=== PATIENT | female | born 1960 | race Caucasian/White ===

== ENCOUNTER → 2016-10-14 | Outpatient (CLI) | payer MEDICARE, OTHER ==
--- NOTE | 2016-10-14 11:09 | ECHOS ---
DATE OF SERVICE: 10/14/2016 AGE: 55Y SEX: F HT: 63" WT: 201 lbs. Protocol Nicolas: X Others: Stress Echo Stage: 2 Dur. of Exercise: 6:00 *Heart Rate Blood Pressure *Rest: 82 Rest: 120/58 * *Max. Achieved: 122 Maximum BP: 186/72 85% PMHR: 139 100% PMHR: 164 *METS: 7.0 INDICATIONS: Dyspnea and abnormal EKG. MEDICATIONS: - Baseline EKG shows sinus rhythm, normal axis, normal intervals. Patient exercised on Nicolas protocol for a total of 6 minutes, achieving 7 METs, 77% of predicted maximal heart rate without chest pain. Patient could not walk at this stage due to shortness of breath and back discomfort and had 0.[address] segment depression. Baseline echo shows normal left ventricular size, wall motion and systolic function. Post exercise, there is normal hyperdynamic response of all segments of myocardium noted. CONCLUSION: 1. Poor exercise tolerance. 2. Inconclusive stress echo due to inability to attain target heart rate.
== END | disposition home or self-care (01) ==
LOC: RADNMMAIN 09:51
PROVIDERS: ATTEND Family Medicine
DX: R06.00 Dyspnea, unspecified (principal)
CPT/HCPCS: 93017; 93350

== ENCOUNTER → 2016-10-31 | Outpatient (CLI) | payer MEDICARE, OTHER ==
--- NOTE | 2016-10-31 10:16 | CT ---
EXAMINATION TYPE: CT chest wo con DATE OF EXAM: 10/31/2016 9:54 AM COMPARISON: NONE HISTORY: Cough for 3 weeks with fever yesterday. CT DLP: 484.2 mGycm. Automated Exposure Control for Dose Reduction was Utilized. TECHNIQUE: CT scan of the thorax is performed without IV contrast. FINDINGS: LUNGS: The lungs are grossly clear, there is no concerning parenchymal mass or nodule identified. No suspicious groundglass opacification or consolidation is seen. There is no pleural effusion or pneum othorax seen. The tracheobronchial tree is patent. MEDIASTINUM: Lack of IV contrast is noted to limit evaluation for mediastinal and especially hilar ad enopathy. There are no definitive greater than 1 cm hilar or mediastinal lymph nodes. No cardiomega ly or pericardial effusion is seen. OTHER: Liver is diffusely hypodense consistent with fatty infiltration. A few diverticula are seen in visualized portion of the colon. There are some fat-containing ventral wall hernias in the visualize d upper abdomen just left of midline. Some multilevel spurring in the spine is present. IMPRESSION: No suspicious acute pulmonary process or infection/infiltrate identified to account for p atient's symptoms.
== END | disposition home or self-care (01) ==
LOC: RADCTMAIN 09:39
PROVIDERS: ATTEND Nurse Practitioner Adult Health
DX: R05 Cough (principal)
CPT/HCPCS: 71250

== ENCOUNTER → 2016-11-03 | Outpatient (CLI) | payer MEDICARE, OTHER ==
[2016-11-03 13:04] LABS: Rheumatoid Factor, Qnt <9 IU/mL (<12)
[2016-11-03 13:48] LABS: Cholesterol 260 mg/dL (<200); HDL Cholesterol 95 mg/dL (40-60); Triglycerides 104 mg/dL (<150)
[2016-11-03 21:12] LABS: ANA w/Reflex to Titer NEGATIVE (NEGATIVE)
[2016-11-04 05:20] LABS: Lyme Antibodies Total(IgG/IgM) 0.31 (<0.90)
[2016-11-04 06:08] LABS: Cardiolipin Ab IgG <9.0 GPL (<15); Cardiolipin Ab IgM <9.0 MPL (<12.5)
[2016-11-04 12:43] LABS: Protein C (Activity) 186 % (70 - 130)
[2016-11-04 12:44] LABS: Free Protein S Antigen 193 % (50 - 147)
== END | disposition home or self-care (01) ==
LOC: LABWHC1 11:30
PROVIDERS: ATTEND Psychiatry & Neurology Neurology
DX: I99.9 Unspecified disorder of circulatory system (principal)
CPT/HCPCS: 36415; 80061; 81241; 81291; 85300; 85301; 85303; 85306; 85613; 85730; 86038; 86147; 86431; 86618

== ENCOUNTER → 2017-04-14 | Outpatient (CLI) | payer MEDICARE, OTHER ==
--- NOTE | 2017-04-14 19:55 | CT ---
EXAMINATION TYPE: CT abdomen pelvis wo con DATE OF EXAM: 04/14/2017 COMPARISON: 01/13/2013 HISTORY: Epigastric pain with nausea and vomiting. CT DLP: 881.00 mGycm. Automated exposure control for dose reduction was used. TECHNIQUE: Helical acquisition of images was performed from the lung bases through the pelvis. FINDINGS: VISUALIZED SUPRADIAPHRAGMATIC STRUCTURES: No significant abnormality is appreciated. LIVER/GB: No significant abnormality is appreciated. PANCREAS: No significant abnormality is seen. SPLEEN: No significant abnormality is seen. ADRENALS: No significant abnormality is seen. KIDNEYS: No significant abnormality is seen. FREE AIR: No free air is visualized RETROPERITONEAL ADENOPATHY: None visualized REPRODUCTIVE ORGANS: No significant abnormality is seen URINARY BLADDER: No significant abnormality is seen. PELVIC ADENOPATHY: None visualized. OSSEOUS STRUCTURES: No significant abnormality is seen. BOWEL: No significant abnormality is seen. MISCELLANEOUS: The anterior abdominal wall is penetrated at several levels by omental herniations, si milar to the prior study. There are no bowel loops associated with these omental herniations. LIMITATION: Without intravenous contrast there is limited sensitivity for focal visceral lesions and intraluminal pathology. IMPRESSION: NO ACUTE PROCESS TO CORRELATE WITH THE PATIENT'S EPIGASTRIC PAIN WITH NAUSEA AND VOMITING.
[2017-04-14 20:12] LABS: ALT 46 U/L (9-52); AST 24 U/L (14-36); Alkaline Phosphatase 121 U/L (38-126); Anion Gap 14 mmol/L; Blood Urea Nitrogen 19 mg/dL (7-17); Calcium 9.3 mg/dL (8.4-10.2); Carbon Dioxide 24 mmol/L (22-30); Chloride 99 mmol/L (98-107); Glucose 98 mg/dL (74-99); Non-African American GFR(MDRD) >60 (>60 ml/min/1.73 sqM); Potassium 4.3 mmol/L (3.5-5.1); Sodium 137 mmol/L (137-145); Total Bilirubin 0.6 mg/dL (0.2-1.3)
[2017-04-14 20:23] LABS: Basophils # (A) 0.1 k/uL (0-0.2); Basophils % (A) 1 %; CH 30.2; CHCM 33.4; Eosinophils # (A) 0.1 k/uL (0-0.7); Eosinophils % (A) 1 %; HCT 41.1 % (34.0-46.0); HDW 2.33; Luc # (Auto) 0.24; Luc % (Auto) 3; Lymphocytes # (A) 2.4 k/uL (1.0-4.8); Lymphocytes % (A) 25 %; MCH 30.9 pg (25.0-35.0); MCV 90.9 fL (80.0-100.0); Mean Platelet Volume 6.9; Monocytes # (A) 0.6 k/uL (0-1.0); Monocytes % (A) 6 %; Neutrophils # (A) 6.2 k/uL (1.3-7.7); Neutrophils % (A) 64 %; RBC 4.52 m/uL (3.80-5.40); RDW 12.9 % (11.5-15.5); WBC 9.6 k/uL (3.8-10.6); WBC (Perox) 9.36
== END | disposition home or self-care (01) ==
LOC: RADCTMAIN 17:21
PROVIDERS: ATTEND Nurse Practitioner Adult Health
DX: R10.9 Unspecified abdominal pain (principal)
CPT/HCPCS: 36415; 74176; 80053; 85025

== ENCOUNTER → 2017-04-28 | Outpatient (CLI) | payer MEDICARE, OTHER ==
--- NOTE | 2017-04-29 07:17 | MM ---
Reason for exam: screening (asymptomatic). Last mammogram was performed 1 year and 1 month ago. History: Patient is postmenopausal. Excisional biopsy of the left breast, September 23, 2006. Took unspecified hormones for 5 months beginning at age 45. Physical Findings: A clinical breast exam by your physician is recommended on an annual basis and results should be correlated with mammographic findings. MG 3D Screening Mammo W/Cad Bilateral CC and MLO view(s) were taken. Prior study comparison: April 03, 2016, bilateral MG screening mammo w CAD. September 22, 2014, bilateral MG screening mammo w CAD. The breast tissue is heterogeneously dense. This may lower the sensitivity of mammography. Benign calcifications. There is no discrete abnormality. No significant changes when compared with prior studies. ASSESSMENT: Benign, BI-RAD 2 RECOMMENDATION: Routine screening mammogram of both breasts in 1 year.
== END | disposition home or self-care (01) ==
LOC: RADMAMWWP 07:47
PROVIDERS: ATTEND Family Medicine
DX: Z12.31 Encounter for screening mammogram for malignant neoplasm of breast (principal)
CPT/HCPCS: 77063; G0202

== ENCOUNTER → 2018-10-12 | Outpatient (CLI) | payer MEDICARE, OTHER ==
--- NOTE | 2018-10-12 16:32 | CONS ---
CONSULTATION REASON FOR CONSULTATION: Sleep apnea. 57-year-old female patient diagnosed having obstructive sleep apnea. [facility] and following that, the patient was given a Quinteros Paykel unit which is set at a pressure of 12 cm of water. She was also given an Eson nose mask. On today's evaluation, the patient is having difficulty tolerating the unit. I checked her system and the patient is utilizing CPAP on average of 7 hours per night and CPAP use for more than 4 hours is approaching 86%. Never the less, she tells me that the treatment is quite uncomfortable and waking up in the middle of the night. It is pumping at a higher pressure and she is unable to tolerate the treatment. She is using a nose mask. Current Dodge Score is at 9. I do not have any documentation on her original sleep study and its severity. We are assuming that this patient was treated for an obstructive sleep apnea. As for the pressure setting, this was 12 cm of water. I am not sure the exact basis on taking this pressure setting. PAST MEDICAL HISTORY: FABIÁN, obesity, hypothyroidism, cervical and lumbar disc disease. SURGICAL HISTORY: Multiple spinal fusions L3 through S1 and C4 through C7. Eye surgery, hernia surgery, carpal tunnel release and tonsillectomy. DRUG ALLERGIES: NIACIN AND TAPE. MEDICATIONS INCLUDE: Levothyroxine 112 mcg p.o. daily, Livalo 2 mg p.o. daily, verapamil ER 180 mg p.o. daily. Omeprazole 20 mg p.o. daily, vitamin D3 5000 units daily, Biotin, Flonase nose spray. Loratadine 10 mg p.o. daily, metoprolol ER 50 mg p.o. b.i.d., ibuprofen 200 mg p.o. daily, Tylenol on an as needed basis. SOCIAL HISTORY: No history of smoking. No history of alcohol. No history of IV drugs. FAMILY HISTORY: Negative for sleep apnea. REVIEW OF SYSTEMS: 12-point review of system was done. Positive findings are mentioned above. She is still snoring. She is having excessive sleepiness during the day. She has issues with nocturia and grinding of the teeth. She wakes up with dry mouth. She goes to bed around 10:00 p.m., wakes up at 6 a.m. in the morning. She is quite uncomfortable while on CPAP unit. She drinks a glass of coffee on a daily basis. No substance abuse. No history of alcohol. She sleeps on her side. Does not watch TV in the bedroom environment. No seizure activity. No anxiety or depression. No claustrophobia. PHYSICAL EXAMINATION: BP is 143/83, pulse is 70, respirations 16, temp 98.4, saturation 96% on room air. Dodge Score is at 9. Neck size 17. BMI 38.5. GENERAL APPEARANCE: Obese, calm and comfortable. Head is atraumatic, normocephalic. Neck is short, supple. There is crowding of posterior pharynx. There is no goiter or neck masses. Mallampati class IV. LUNGS: Clear to auscultation. HEART: Sounds are regular rate and rhythm. Normal S1, S2. No S3, S4. No murmurs. ABDOMEN: Soft, nontender. No organomegaly. EXTREMITIES: No edema. No cyanosis or clubbing. Neurological: Alert and oriented times three. No focal neurological deficits. IMPRESSION: 1. Obstructive sleep apnea. Exact diagnostic circumstances is not known. The patient had a [facility] evaluation. The presence of the disease and severity is not known to me. The patient was given CPAP unit at a pressure of 12 cm of water and currently she is using a Quinteros Paykel unit with a nose mask. 2. Unsuccessful CPAP therapy. 3. Hypersomnia Dodge score of 9. 4. Obesity with a BMI of 38.5. 5. Hypothyroidism. 6. History of cervical and lumbar disc disease. PLAN: 1. I put this patient for a split night study. This will be helpful to establish diagnosis and decide on the pressure setting. 2. We will continue using Quinteros Paykel CPAP unit. The pressure of 12 may not be appropriate. I switched to an a APAP mode, minimum pressure of 5, maximum pressure of 15. I also gave her Dream Wear [id number] nose mask to use. 3. Encourage weight loss. 4. See me back in 6 weeks for a compliancy recheck. At that time, the split night study will be completed which will be helpful in establishing a diagnosis and getting some guidelines as far as her pressure settings. We will continue to follow. MMODL / IJN: [id number] /
== END ==
LOC: SLEEP 13:12
PROVIDERS: ATTEND Internal Medicine Critical Care Medicine
DX: G47.33 Obstructive sleep apnea (adult) (pediatric) (principal); E66.9 Obesity, unspecified; E03.9 Hypothyroidism, unspecified; M51.36 Other intervertebral disc degeneration, lumbar region; M50.30 Other cervical disc degeneration, unspecified cervical region; Z79.899 Other long term (current) drug therapy; Z79.1 Long term (current) use of non-steroidal anti-inflammatories (NSAID); Z88.8 Allergy status to other drugs, medicaments and biological substances; Z91.048 Other nonmedicinal substance allergy status; Z68.38 Body mass index [BMI] 38.0-38.9, adult; Z99.89 Dependence on other enabling machines and devices
CPT/HCPCS: 99211

== ENCOUNTER → 2018-10-27 | Outpatient (CLI) | payer MEDICARE, OTHER ==
--- NOTE | 2018-10-29 10:08 | MM ---
Reason for exam: screening (asymptomatic). Last mammogram was performed 1 year and 6 months ago. History: Patient is postmenopausal. Excisional biopsy of the left breast, September 23, 2006. Took unspecified hormones for 5 months beginning at age 45. Physical Findings: A clinical breast exam by your physician is recommended on an annual basis and results should be correlated with mammographic findings. MG 3D Screening Mammo W/Cad Bilateral CC and MLO view(s) were taken. Prior study comparison: April 28, 2017, bilateral MG 3d screening mammo w/cad. April 03, 2016, bilateral MG screening mammo w CAD. There are scattered fibroglandular densities. Benign oil cyst calcifications. No significant changes when compared with prior studies. ASSESSMENT: Benign, BI-RAD 2 RECOMMENDATION: Routine screening mammogram of both breasts in 1 year.
== END | disposition home or self-care (01) ==
LOC: RADMAMWWP 11:09
PROVIDERS: ATTEND Family Medicine
DX: Z12.31 Encounter for screening mammogram for malignant neoplasm of breast (principal)
CPT/HCPCS: 77063; 77067

== ENCOUNTER → 2019-01-04 | Outpatient (CLI) | payer MEDICARE, OTHER | LOC: SLEEP 13:37 | PROVIDERS: ATTEND Internal Medicine Critical Care Medicine | DX: Z53.9 Procedure and treatment not carried out, unspecified reason (principal) ==

== ENCOUNTER → 2019-01-11 | Outpatient (CLI) | payer MEDICARE, OTHER ==
--- NOTE | 2019-01-11 17:32 | PN ---
PROGRESS NOTE Negin is 58 coming in for an annual check regarding obstructive sleep apnea. She is doing extremely well. She has been averaging about 7.2 hours of CPAP use per night and she is using a DreamWear nose mask. Note that the patient had obstructive sleep apnea. Exact diagnostic circumstance was not known. The patient probably had a night hawk evaluation many years back. She was on a CPAP at pressure of 12 cm of water. This was a Redeemr unit. I performed a split night study on this patient. I confirmed diagnoses of severe symptomatic obstructive sleep apnea and within the first 2 hours of her sleep, the patient multiple hypopneas with an AHI of 48.7. She underwent successful CPAP titration. She was titrated to a CPAP pressure of 9 cm of water. I offered a Dream wear under the nose mask utilized nasally. Doing very well. She is happy with the current treatment. She is happy with the mask interface. She is also happy with the drop in the CPAP pressure which is down to 9 cm of water. She got her current machine back in November of 2014 and she has another year but prior to updating her current machine. She has no other complaints. Her weight is stable at 212. REVIEW OF SYSTEMS: Fourteen-point review of system was done. Positive findings are mentioned in history of present illness. No falls. No motor vehicle accident because of feeling drowsy or sleepy. No headaches. No altered mentation. No nighttime cough, sputum production, chest tightness or wheezing. No chest pain. No swelling in lower extremities. No headaches. No anxiety. No depression. No claustrophobia. No heartburn. No angina and no palpitation. PHYSICAL EXAMINATION: BP is 124/84, pulse 88, respirations 16, temp 98.7. Saturation 93% on room air. [place] Score is at 9. Weight 212. General appearance: Calm, comfortable. Head is atraumatic, normocephalic. NECK: Supple. No JVD. No goiter, no neck masses. Mallampati class IV. LUNGS: Clear to auscultation. HEART: Sounds regular rate and rhythm. Normal S1, S2. No S3, S4. No murmurs. ABDOMEN: Soft, nontender. No organomegaly. EXTREMITIES: No edema. No cyanosis or clubbing. NEUROLOGIC: She is alert and oriented times three. No focal neurological deficits. PSYCHIATRIC: Negative for anxiety or depression. IMPRESSION: 1. Symptomatic obstructive sleep apnea. The patient underwent a split night study confirming diagnosis of severe obstructive sleep apnea with an AHI of 48. Currently she is on a CPAP pressure of 9 cm of water. 2. Hypersomnia, improved. 3. Obesity with a BMI of 38.8. 4. Chronic hypersomnia improved. 5. Hypothyroidism. 6. History of cervical and lumbar disc disease. PLAN: 1. Continue her current CPAP unit use which is a Redeemr CPAP being used at the pressure of 9 cm of water. 2. Continue using the Dream wear other nose mask. I changed her frame to small and changed her nose piece to a small size and this will obviously give her a better fit. 3. Encourage weight loss. 4. See me back in a year's time in follow up, earlier if needed. MMODL / IJN: [id number] /
== END | disposition home or self-care (01) ==
LOC: SLEEP 13:06
PROVIDERS: ATTEND Internal Medicine Critical Care Medicine
DX: G47.33 Obstructive sleep apnea (adult) (pediatric) (principal); E66.9 Obesity, unspecified; E03.9 Hypothyroidism, unspecified; Z68.38 Body mass index [BMI] 38.0-38.9, adult; Z87.39 Personal history of other diseases of the musculoskeletal system and connective tissue; Z99.89 Dependence on other enabling machines and devices

== ENCOUNTER → 2019-07-21 | Outpatient (CLI) | payer MEDICARE, OTHER ==
[2019-07-21 12:01] LABS: Basophils % (A) 0 %; Eosinophils % (A) 0 %; HCT 39.9 % (34.0-46.0); HGB 13.4 gm/dL (11.4-16.0); Lymphocytes # (A) 1.3 k/uL (1.0-4.8); Lymphocytes % (A) 9 %; MCH 31.2 pg (25.0-35.0); MCHC 33.6 g/dL (31.0-37.0); MCV 92.9 fL (80.0-100.0); Mean Platelet Volume 7.8; Monocytes # (A) 0.5 k/uL (0-1.0); Monocytes % (A) 4 %; Neutrophils # (A) 11.4 k/uL (1.3-7.7); Neutrophils % (A) 86 %; Platelet Count 403 k/uL (150-450); RDW 12.7 % (11.5-15.5); WBC 13.2 k/uL (3.8-10.6)
[2019-07-21 15:37] LABS: African American GFR (CKD) 93.5 (60.0-200.0); Albumin 5.2 g/dL (3.80-4.90); Albumin/Globulin Ratio 2.26 (1.60-3.17); Anion Gap 11.6 mmol/L (4.00-12.00); BUN/Creat Ratio 16.25 Ratio (12.00-20.00); Calcium 9.6 mg/dL (8.7-10.3); Carbon Dioxide 27.4 mmol/L (21.6-31.8); Chol/HDL Ratio 3.42; Globulin 2.3 g/dL (1.6-3.3); LDL Cholesterol,Calculated 176.4 mg/dL (0.0-131.0); Non-African American GFR(CKD) 80.7 (60.0-200.0); Potassium 4.9 mmol/L (3.5-5.5); Total Bilirubin 0.3 mg/dL (0.2-1.2); Total Protein 7.5 g/dL (6.2-8.2); VLDL Calculation 19.6 mg/dL (5.00-40.00)
[2019-07-21 15:41] LABS: T4, Free (Free Thyroxine) 1.3 ng/dL (0.80-1.80)
[2019-07-21 16:45] LABS: Hemoglobin A1C 5.7 % (4.0-6.0)
== END | disposition home or self-care (01) ==
LOC: LABWHC1 10:47
PROVIDERS: ATTEND Family Medicine
DX: E03.9 Hypothyroidism, unspecified (principal); E78.5 Hyperlipidemia, unspecified
CPT/HCPCS: 36415; 80053; 80061; 82550; 83036; 84439; 84443; 85025

== ENCOUNTER → 2021-11-19 | Outpatient (CLI) | payer MEDICARE, OTHER ==
--- NOTE | 2021-11-19 16:25 | P.PN ---
Subjective Progress Note Date: 11/19/21 62-year-old female patient is very well-known to me and the patient has obstructive sleep apnea and she is coming in as the patient is having problems with her current CPAP unit. The patient was diagnosed having obstructive sleep apnea several years back. She underwent a split-night study and the patient was found to have severe FABIÁN with an AHI of 48.7. She underwent successful CPAP titration and she was titrated to CPAP pressure of 12 cm of water. At that time,the patient was given a Fio CPAP unit which has been effective since the start. For now, the patient plugs in the machine and she waits at least 1 hour before the machine to warm up and start pumpingir. For now, she is interested in updating his CPAP unit. She has been very compared to CPAP therapy over the years. She is in need for CPAP machine. Recurrent L4 through score is at 12. No recent weight gain. No new onset comorbid conditions. Medications were reviewed. No cardiac arrhythmias. Blood pressure is elevated and the patient is currently on verapamil. No chest pain. No angina. No palpitation. No itchy fibrillation. She gets quite symptomatically and somnolent whenever she is off to treatment. Nevertheless, over the years, she has demonstrated excellent compliance and the patient has been utilizing a dreamware under the nose nasal mask. medications include levothyroxine 125 g daily, verapamil 180 mg daily, omeprazole 20 mg daily, biotin, vitamin D3, acetaminophen, Motrin, fluticasone nasal spray, Elsa, metoprolol 50 mg 1-1/2 tablets a day. Objective - Exam the patient's blood pressure is 164/80 with a pulse of 86 and respirations 16 and the [place] score is at 12 and her weight is 209 pounds. Oxygen saturations 95% Gen. appearance she is calm and comfortable and she is not in acute respiratory distress The patient appeared well nourished and normally developed. Vital signs as documented. Head exam is unremarkable. No scleral icterus or corneal arcus noted. Neck is without jugular venous distension, thyromegaly, or carotid bruits. Carotid upstrokes are brisk bilaterally. Lungs are clear to auscultation and percussion. Cardiac exam reveals the PMI to be normally sized and situated. Rhythm is regular. First and second heart sounds normal. No murmurs, rubs or gallops. Abdominal exam reveals normal bowel sounds, no masses, no organomegaly and no aortic enlargement. Extremities are nonedematous and both femoral and pedal pulses are normal.Examination of the skin revealed no evidence of significant rashes, suspicious appearing nevi or other concerning lesions.Neurologically, the patient is awake and alert and the patient does not have any focal neurological deficit. Cranial nerves are essentially intact. Assessment and Plan Plan: 1 severe symptomatic FABIÁN with an AHI of 48.7. The patient has been utilizing a dysfunctional CPAP unit over the years and she was being treated with a CPAP pressure of 12 cm of water. She is in need for new CPAP unit for the reasons mentioned above 2 obesity, weight has been stable at 209 pounds 3 chronic hypersomnia, [place] scores a 12 4 hypothyroidism 5 cervical disc disease 6 lumbar disc disease Plan we'll proceed with a order of a new CPAP unit which will be in APAP ResMed Airsense 11. We'll keep the same mask interface which is edema around the size nasal mask. The CPAP unit will be set at a pressure of 12 cm of water with C- Flex of 3. The patient will see me back in follow-up in 30-90 days after obtaining a CPAP unit.
== END ==
LOC: SLEEP 15:33
PROVIDERS: ATTEND Internal Medicine Critical Care Medicine
DX: G47.33 Obstructive sleep apnea (adult) (pediatric) (principal); Z99.89 Dependence on other enabling machines and devices; E66.9 Obesity, unspecified; E03.9 Hypothyroidism, unspecified; M50.90 Cervical disc disorder, unspecified, unspecified cervical region; M51.9 Unspecified thoracic, thoracolumbar and lumbosacral intervertebral disc disorder; Z88.8 Allergy status to other drugs, medicaments and biological substances; Z87.891 Personal history of nicotine dependence

== ENCOUNTER → 2022-09-09 | Outpatient (CLI) | payer MEDICARE, OTHER ==
--- NOTE | 2022-09-09 14:47 | P.PN ---
Progress Note - Text Progress Note Date: 09/09/22 This is a 61-year-old female patient, coming in for a compliance check regarding her new CPAP unit as the patient was offered a ResMed 11 CPAP machine which is currently set at a pressure of 12 cm of water. She is also using a dreamware nasal mask small size. The patient is known to have severe FABIÁN with an AHI of 48.7. The patient is being successfully treated and the patient has no Sergio. issues other than some issues with her loose headgear. Based on the compliance data that was collected between 08/09/2022 and 09/07/2022, the patient's overall compliancy was 100%, the patient used the machine more than 4 hours 100% of the time and her average usage is around 7 hours and 41 minutes. The patient's leak was in the order of 20 L/m and the patient's AHI was down to 0.8. As such, the patient treatment been very successful and the patient has no specific complaints for now. No major hypersomnia or sleepiness during the day. She is wide awake and alert and she has no nighttime snoring. No chest pain. No shortness of breath. No overall change in her body weight. Her current Mcdonough score is down to 11. BP is 177/81 with a pulse of 71 and the respiration of 16 with a temperature of 97.1. Weight is 219 The patient appeared well nourished and normally developed. Vital signs as documented. Head exam is unremarkable. No scleral icterus or corneal arcus noted. Neck is without jugular venous distension, thyromegaly, or carotid bruits. Carotid upstrokes are brisk bilaterally. Lungs are clear to auscultation and percussion. Cardiac exam reveals the PMI to be normally sized and situated. Rhythm is regular. First and second heart sounds normal. No murmurs, rubs or gallops. Abdominal exam reveals normal bowel sounds, no masses, no organomegaly and no aortic enlargement. Extremities are nonedematous and both femoral and pedal pulses are normal.Examination of the skin revealed no evidence of significant rashes, suspicious appearing nevi or other concerning lesions.Neurologically, the patient is awake and alert and the patient does not have any focal neurological deficit. Cranial nerves are essentially intact. Assessment Severe FABIÁN with an AHI of 48.7 and the patient has been successful treatment with a CPAP pressure of 12 cm of water. Compliance check was done. The machine is functional and the patient's usage is adequate and the patient is benefiting from the treatment. Obesity with a stable body weight Chronic hypersomnia improving with CPAP therapy Chronic lumbar and cervical disc disease Hypothyroidism Plan To CPAP therapy the same level of pressures which is 12 cm of water Continue using the same mask interface, dreamware under the nose small size. I also offered the patient an air fitN 30 I nasal mask as an alternative Offered the patient a climate line for her machine Encourage weight loss Treatment has been adequate and the patient has been meeting insurance tenderness for compliancy See back in one year's time in follow-up. Contact the primary care physician regarding the elevated blood pressure.
== END ==
LOC: SLEEP 13:10
PROVIDERS: ATTEND Internal Medicine Critical Care Medicine
DX: G47.33 Obstructive sleep apnea (adult) (pediatric) (principal); Z99.89 Dependence on other enabling machines and devices; E03.9 Hypothyroidism, unspecified; E66.9 Obesity, unspecified; M50.90 Cervical disc disorder, unspecified, unspecified cervical region; M51.36 Other intervertebral disc degeneration, lumbar region; Z88.1 Allergy status to other antibiotic agents; Z87.891 Personal history of nicotine dependence
CPT/HCPCS: 99212

== ENCOUNTER → 2023-01-13 | Outpatient (CLI) | payer MEDICARE, OTHER ==
--- NOTE | 2023-01-14 07:54 | MM ---
Reason for Exam: Screening (asymptomatic). Last mammogram was performed 4 year(s) and 3 month(s) ago. Patient History: Menarche at age 10. First Full-Term at age 16. Postmenopausal. Unspecified Hormone for 5 months starting at age 45. 09/23/2006, Excisional Biopsy on the Left side. Maternal aunt had breast cancer. Risk Values: Brenda 5 year model risk: 1.5%. NCI Lifetime model risk: 6.3%. Prior Study Comparison: 04/03/2016 Bilateral Screening Mammogram, [facility]. 04/28/2017 Bilateral Screening Mammogram, [facility]. 10/27/2018 Bilateral Screening Mammogram, [facility]. Tissue Density: The breast tissue is heterogeneously dense. This may lower the sensitivity of mammography. Findings: Analyzed By CAD. There is no suspicious group of microcalcifications or new suspicious mass in either breast. Benign-appearing round calcifications within both breasts. Overall Assessment: Benign, BI-RAD 2 Management: Screening Mammogram of both breasts in 1 year. A clinical breast exam by your physician is recommended on an annual basis and results should be correlated with mammographic findings. Electronically signed and approved by: Dajuan Iyer D.O.
== END | disposition home or self-care (01) ==
LOC: RADMAMWWP 07:34
PROVIDERS: ATTEND Family Medicine
DX: Z12.31 Encounter for screening mammogram for malignant neoplasm of breast (principal); Z78.0 Asymptomatic menopausal state; Z80.3 Family history of malignant neoplasm of breast
CPT/HCPCS: 77063; 77067

== ENCOUNTER → 2023-09-08 | Outpatient (CLI) | payer MEDICARE, OTHER ==
--- NOTE | 2023-09-08 17:16 | P.PN ---
Progress Note - Text Progress Note Date: 09/08/23 On 09/08/2023, I am seeing the patient for a follow-up regarding obstructive sleep apnea. The patient is known to have FABIÁN and the patient has been maintained on CPAP therapy. Her baseline disease was severe with an AHI of 40.7 and the patient is using CPAP therapy at a pressure of 12 cm of water. She remains extremely compliant. Time she is taking Benadryl 25 mg for sleep induction and maintenance. For the most part, her compliance is great. She has been averaging around 7.6 hours of CPAP use per night. Her leak is in the order of 26 L/min and her AHI is down to 1.5. She is also using the AirFit N30 I small size fullface mask. She has lost around 10 pounds since her last evaluat ion. She is extremely compliant. No major hypersomnia or sleepiness during the day. No other new complaints otherwise for now. She is still having issues with blood pressure. She is taking 2 different antihypertensive medication and this includes metoprolol and amlodipine Medication list includes omeprazole 20 mg p.o. daily, Zetia 10 mg p.o. daily, Lipitor 20 mg p.o. daily, amlodipine 5 mg p.o. daily, metoprolol 50 mg p.o. daily, Benadryl as needed and she also has ibuprofen 200 mg on an as-needed basis Review of systems. 14 point review of system was done and the positive findings were mentioned above history of present illness BP is 159/87 with a pulse of 72 and respiration of 20 and the temperature is 98.1. Saturation is 97% on room air. Weight is 209. Body mass index is 38.2 and [place]ack[place] score is at 10 The patient appeared well nourished and normally developed. Vital signs as documented. Head exam is unremarkable. No scleral icterus or corneal arcus noted. Neck is without jugular venous distension, thyromegaly, or carotid bruits. Carotid upstrokes are brisk bilaterally. Lungs are clear to auscultation and percussion. Cardiac exam reveals the PMI to be normally sized and situated. Rhythm is regular. First and second heart sounds normal. No murmurs, rubs or gallops. Abdominal exam reveals normal bowel sounds, no masses, no organomegaly and no aortic enlargement. Extremities are nonedematous and both femoral and pedal pulses are normal. Examination of the skin revealed no evidence of significant rashes, suspicious appearing nevi or other concerning lesions. N eurologically, the patient is awake and alert and the patient does not have any focal neurological deficit. Cranial nerves are essentially intact. Assessment Severe FABIÁN with an AHI of 47. Patient continues to receive successful CPAP therapy Hypertension currently on 4 different antihypertensive medication and the BP is slightly elevated Obesity with interval 10 pounds weight loss and a body mass index is 38 Chronic hypersomnia improved with CPAP therapy Chronic lumbar disc disease Chronic cervical disc disease Hypothyroidism Plan Will proceed with CPAP therapy with the same level of pressure. Keep the same mask interface. May need to increase the Norvasc up to 10 mg p.o. daily. All of her supplies will be refilled including the AirFit N30 I nasal mask. Will continue to follow. Encouraged further weight loss.
== END ==
LOC: 3 N SLEEP 13:39
PROVIDERS: ATTEND Internal Medicine Critical Care Medicine
DX: G47.33 Obstructive sleep apnea (adult) (pediatric) (principal); I10 Essential (primary) hypertension; E66.9 Obesity, unspecified; G47.10 Hypersomnia, unspecified; E03.9 Hypothyroidism, unspecified; M50.90 Cervical disc disorder, unspecified, unspecified cervical region; M51.86 Other intervertebral disc disorders, lumbar region; Z68.38 Body mass index [BMI] 38.0-38.9, adult; Z79.899 Other long term (current) drug therapy; Z88.8 Allergy status to other drugs, medicaments and biological substances; Z79.890 Hormone replacement therapy; Z87.891 Personal history of nicotine dependence
CPT/HCPCS: 99212

== ENCOUNTER → 2024-01-01 | Outpatient (CLI) | payer MEDICARE, OTHER ==
--- NOTE | 2024-01-02 16:31 | CT ---
EXAMINATION TYPE: CT lumbar spine wo/w con CT DLP: 3400.90 mGycm, Automated exposure control for dose reduction was used. DATE OF EXAM: 01/01/2024 1:16 PM COMPARISON: 11/01/2014. CLINICAL INDICATION:Female, 63 years old with history of M51.26 INTERVERTEBRAL DISC DISPLACEMENT, LSP REGIO; PHH, weakness in legs, intervertebral disc displacement, hardware L3-S1 TECHNIQUE: Multiple axial images were obtained from the midportion of T11 through the sacroiliac moises nts. Soft tissue and bone windows in coronal and sagittal planes were obtained and reviewed. Contrast used: mL of Isovue 300 with IV Contrast, (None, if empty). Oral contrast used: (None, if empty). FINDINGS: Alignment: There are 5 lumbar type vertebral bodies with fixed grade 2 anterolisthesis of L5 on S1. Bone: Postsurgical changes with hardware at L3, L4, L5 and S1. Hardware appears in appropriate positi on and intact. Multilevel degeneration changes with osteophyte formation disc space narrowing and fac et joint arthropathy. Discs: T12-L1: No spinal canal or neural foraminal stenosis is identified. L1-L2: No spinal canal or neural foraminal stenosis is identified. L2-L3: No spinal canal or neural foraminal stenosis is identified. L3-L4: Postsurgical change limits evaluation at this level. The neural foramen and spinal canal appea r patent. L4-L5: Postsurgical change limits evaluation at this level. The neural foramen and spinal canal appea r patent. L5-S1: Postsurgical change limits evaluation at this level. The neural foramen appear mildly narrowed . There is grade 2 anterolisthesis of L5 on S1. Spinal canal within the limitations of exam appears p atent. Other: None IMPRESSION: Postsurgical changes with hardware intact and appropriate position. No evidence for significant spina l canal or neural foraminal stenosis given limitations of exam.
== END | disposition home or self-care (01) ==
LOC: RADCTMAIN 12:34
PROVIDERS: ATTEND Psychiatry & Neurology Neurology
DX: M51.26 Other intervertebral disc displacement, lumbar region (principal); M47.816 Spondylosis without myelopathy or radiculopathy, lumbar region; R53.1 Weakness; Z98.890 Other specified postprocedural states
CPT/HCPCS: 72133; Q9967

== ENCOUNTER → 2024-01-20 | Outpatient (CLI) | payer MEDICARE, OTHER ==
[2024-01-20 18:19] LABS: Basophils # (A) 0.07 X 10*3/uL (0.00-0.10); Basophils % (A) 1.1 %; Eosinophils # (A) 0.17 X 10*3/uL (0.04-0.35); Eosinophils % (A) 2.8 %; HCT 37.8 % (37.2-46.3); Lymphocytes # (A) 1.78 X 10*3/uL (0.90-5.00); Lymphocytes % (A) 29.1 %; MCH 30.7 pg (27.0-32.0); MCHC 31.7 g/dL (32.0-37.0); MCV 96.7 FL (80.0-97.0); Mean Platelet Volume 9.7 FL (9.5-12.2); Monocytes # (A) 0.52 X 10*3/uL (0.20-1.00); Monocytes % (A) 8.5 %; NRBC Per 100 WBC 0 X 10*3/uL (0.00-0.01); Neutrophils # (A) 3.55 X 10*3/uL (1.80-7.70); Neutrophils % (A) 58.2 %; Platelet Count 322 X 10*3/uL (140-440); RBC 3.91 X 10*6/uL (4.10-5.20); RDW 13.3 % (11.5-14.5); WBC 6.11 X 10*3/uL (4.50-10.00)
[2024-01-20 18:31] LABS: ALT 33 U/L (8-44); AST 39 U/L (13-35); Albumin 4.4 g/dL (3.8-4.9); Albumin/Globulin Ratio 1.69 Ratio (1.60-3.17); Alkaline Phosphatase 99 U/L (41-126); BUN/Creat Ratio 26.71 Ratio (12.00-20.00); Blood Urea Nitrogen 18.7 mg/dL (9.0-27.0); Calcium 9.3 mg/dL (8.7-10.3); Carbon Dioxide 24.5 mmol/L (21.6-31.8); Chloride 103 mmol/L (96-109); Chol/HDL Ratio 3.47 Ratio; Creatine Kinase 61 U/L (26-186); Globulin 2.6 g/dL (1.6-3.3); Glucose 119 mg/dL (70-110); LDL Cholesterol,Calculated 127.9 mg/dL (0.0-131.0); Potassium 4.1 mmol/L (3.5-5.5); Sodium 142 mmol/L (135-145); Total Bilirubin 0.2 mg/dL (0.3-1.2)
[2024-01-20 18:32] LABS: T4, Free (Free Thyroxine) 1.67 ng/dL (0.80-1.80)
--- NOTE | 2024-01-21 08:58 | MM ---
Reason for Exam: Screening (asymptomatic). Last screening mammogram was performed 12 month(s) ago. Patient History: Menarche at age 10. First Full-Term at age 16. Postmenopausal. Unspecified Hormone for 5 months starting at age 45. 09/23/2006, Excisional Biopsy on the Left side. Maternal aunt had breast cancer. Risk Values: Brenda 5 year model risk: 1.5%. NCI Lifetime model risk: 6.1%. Prior Study Comparison: 04/28/2017 Bilateral Screening Mammogram, [facility]. 10/27/2018 Bilateral Screening Mammogram, [facility]. 01/13/2023 Bilateral MG 3D screening mammo w/cad, [facility]. Tissue Density: The breasts are heterogeneously dense, which may obscure small masses. Findings: Analyzed By CAD. There is no suspicious group of microcalcifications or new suspicious mass in either breast. Benign-appearing calcifications. Overall Assessment: Benign, BI-RAD 2 Management: Screening Mammogram of both breasts in 1 year. . Patient should continue monthly self-breast exams. A clinical breast exam by your physician is recommended on an annual basis. This exam should not preclude additional follow-up of suspicious palpable abnormalities. Note on Brenda scores and lifetime risk: 1. A Brenda score greater than 3% is considered moderate risk. If this is the case, consider specialist referral to assess eligibility for a risk reducing agent. 2. If overall lifetime risk for the development of breast cancer is 20% or higher, the patient may qualify for future screening with alternating mammogram and breast MRI. Electronically signed and approved by: Leonard Braswell M.D. Radiologis
== END | disposition home or self-care (01) ==
LOC: RADMAMWWP 09:53
PROVIDERS: ATTEND Family Medicine
DX: Z12.31 Encounter for screening mammogram for malignant neoplasm of breast (principal); E78.5 Hyperlipidemia, unspecified; E03.9 Hypothyroidism, unspecified; Z80.3 Family history of malignant neoplasm of breast; Z78.0 Asymptomatic menopausal state
CPT/HCPCS: 77063; 77067; 80053; 80061; 82550; 83036; 84439; 84443; 85025

== ENCOUNTER → 2025-01-16 | Outpatient (CLI) | payer MEDICARE, OTHER ==
[2025-01-16 15:10] LABS: Basophils # (A) 0.06 X 10*3/uL (0.00-0.10); Basophils % (A) 0.8 %; Eosinophils # (A) 0.13 X 10*3/uL (0.04-0.35); Eosinophils % (A) 1.7 %; HCT 39.7 % (37.2-46.3); HGB 12.6 g/dL (12.0-15.0); Lymphocytes # (A) 1.95 X 10*3/uL (0.90-5.00); Lymphocytes % (A) 25.3 %; MCH 30.1 pg (27.0-32.0); MCHC 31.7 g/dL (32.0-37.0); Mean Platelet Volume 9.8 FL (9.5-12.2); Monocytes # (A) 0.63 X 10*3/uL (0.20-1.00); Monocytes % (A) 8.2 %; NRBC Per 100 WBC 0 X 10*3/uL (0.00-0.01); Neutrophils # (A) 4.92 X 10*3/uL (1.80-7.70); Neutrophils % (A) 63.6 %; Platelet Count 327 X 10*3/uL (140-440); RBC 4.18 X 10*6/uL (4.10-5.20); RDW 13.2 % (11.5-14.5); WBC 7.72 X 10*3/uL (4.50-10.00)
[2025-01-16 15:31] LABS: ALT 44 U/L (8-44); AST 71 U/L (13-35); Albumin 4.5 g/dL (3.8-4.9); Alkaline Phosphatase 101 U/L (41-126); BUN/Creat Ratio 18.43 Ratio (12.00-20.00); Blood Urea Nitrogen 12.9 mg/dL (9.0-27.0); Calcium 9.1 mg/dL (8.7-10.3); Carbon Dioxide 23.5 mmol/L (21.6-31.8); Chloride 101 mmol/L (96-109); Chol/HDL Ratio 3.67 Ratio; Creatine Kinase 85 U/L (26-186); Glucose 103 mg/dL (70-110); LDL Cholesterol,Calculated 126.5 mg/dL (0.0-131.0); Potassium 4.4 mmol/L (3.5-5.5); Sodium 140 mmol/L (135-145); Total Bilirubin 0.3 mg/dL (0.3-1.2); Total Protein 7.5 g/dL (6.2-8.2)
== END | disposition home or self-care (01) ==
LOC: LABWHC1 09:51
PROVIDERS: ATTEND Family Medicine
DX: E78.5 Hyperlipidemia, unspecified (principal); E03.9 Hypothyroidism, unspecified
CPT/HCPCS: 36415; 80053; 80061; 82550; 83036; 84443; 84481; 85025